=== PATIENT | female | born 1975 | race Caucasian/White ===

== ENCOUNTER 2019-01-15 15:32 | Emergency (ER) | payer MEDICAID ==
[~2019-01-15] VITALS: Ht 167.6 cm; Wt 72.6 kg
--- NOTE | 2019-01-15 16:16 | NUR ---
BIB SELF W C/O HEADACHE SINCE YESTERDAY, CHEST PALPITATION THAT STARTED 3 HOURS AGO. TO ER BED 3, HOOKED TO MONITOR, CHANGED TO GOWN, AWAITING MD LEVY
--- NOTE | 2019-01-15 16:30 | NUR ---
DR AGUIRRE AT BEDSIDE
[2019-01-15] MEDS ORDERED: ACETAMINOPHEN ES 500 MG TABLET ONE (16:58)
[2019-01-15] MEDS ORDERED: IBUPROFEN 600 MG TABLET PO ONE ×2 (16:58→17:00)
[2019-01-15] MEDS ORDERED: ACETAMINOPHEN ES 500 MG TABLET PO ONE (17:00)
--- NOTE | 2019-01-15 17:33 | NUR ---
Patient discharged to home in stable condition. Written and verbal after care instructions given. Patient verbalizes understanding of instruction.
[2019-01-15 17:34] VITALS: BP 127/74
== END 2019-01-15 17:34 | disposition home or self-care (01) ==
LOC: ER 15:42
DX: R51 Headache (principal); R00.2 Palpitations; Z60.2 Problems related to living alone